=== PATIENT | male | born 1955 | race Caucasian/White ===

== ENCOUNTER 2019-12-26 07:28 | Outpatient (CLI) | payer BC, SELFPAY ==
--- NOTE | ~2019-12-26 | MR_ITS ---
EXAMINATION: MR lumbar spine wo con EXAM DATE: 12/26/2019 08:23 INDICATION: Low back pain, bilateral leg pain. TECHNIQUE: Multi-sequential, multiplanar MR images of the lumbar spine were obtained without contrast . Sagittal T1, T2, T2 fat saturation images. Axial T2 weighted images. There is no prior study for comparison. FINDINGS: There is chronic bilateral L5 spondylolysis with grade 2 anterolisthesis L5 on S1, moderate to severe disc disease. Moderate disc disease at L4-5 and mild at the other lumbar levels. Mild to m oderate disc disease T11-12 and T12-L1. The conus medullaris terminates at the L1/2 level and has nor mal signal intensity and morphology. There are no suspicious marrow signal abnormalities. Paraspinal soft tissue is unremarkable. Level by level evaluation: T12-L1: There is a mild to moderate diffuse disc bulge. Facet arthropathy: Mild. Neural foraminal stenosis: Mild bilateral. Central canal stenosis: Mild. L1-L2: There is a mild diffuse disc bulge. Facet arthropathy: Mild. Neural foraminal stenosis: No stenosis. Central canal stenosis: No stenosis. L2-L3: There is a moderate diffuse disc bulge. Facet arthropathy: Moderate. Neural foraminal stenosis: Mild right. Central canal stenosis: Mild to moderate. L3-L4: There is a large diffuse disc bulge. Facet arthropathy: Moderate. Neural foraminal stenosis: Mild to moderate bilateral. Central canal stenosis: Moderate, nerve root crowding. L4-L5: There is a large diffuse disc bulge. Facet arthropathy: Moderate to severe. Neural foraminal stenosis: Moderate bilateral, left more than right. Central canal stenosis: Moderate, less crowding than level above. L5-S1: There is a moderate diffuse disc bulge. Facet arthropathy: Moderate bilateral. Neural foraminal stenosis: Moderate to severe. Central canal stenosis: Mild. IMPRESSION: 1. Chronic L5 spondylolysis, grade 2 anterolisthesis L5 on S1 with moderate to severe bilateral neur al foraminal stenosis. 2. Lesser spondylosis above. Reviewed, dictated and finalized at location A. OF CUSTOMER EXPERIENCE STRATEGY IMPRESSION: 1. Chronic L5 spondylolysis, grade 2 anterolisthesis L5 on S1 with moderate to severe bilateral neural foraminal stenosis. 2. Lesser spondylosis above.
== END 2019-12-26 07:29 | disposition home or self-care (01) ==
PROVIDERS: PCP Internal Medicine; Visit Provider Internal Medicine
DX: M47.896 Other spondylosis, lumbar region (principal)
CPT/HCPCS: 72148

== ENCOUNTER 2022-09-21 02:03 | Day surgery (SDC) | payer MEDICARE, SELFPAY ==
[2022-09-11 11:11] VITALS: BMI 30.7
[2022-09-21 08:35] VITALS: BP 154/94; PULSE 100; RESP 18; TEMP 36.4; O2SAT 99
[2022-09-21] MEDS: LACTATED RINGERS 1,000 ML 150 ML IV CONT (08:55)
--- NOTE | 2022-09-21 09:06 | PM.HPGS ---
History of Present Illness History of Present Illness Consent: Risks, benefits, and alternatives have been discussed and questions answered. Patient agrees to proceed with procedure. Chief complaint: history of colon polyps Narrative: Glen Davey is a 66 year old male Presents for screening colonoscopy. Patient has a family history that includes 2 brothers and his father having had colon cancer. Patient's current weight appetite and bowel movements are normal. He did have a previous benign hyperplastic colon polyp in 2019. No prior history of adenomatous colon polyps are available. Patient has had screening colonoscopies at 3 year intervals. He denies any other family history of cancers. There are no gynecological cancers within the family. One brother had genetic testing that revealed no evidence for Beltran syndrome. Review of Systems Review of Systems: Review of systems noncontributory. [facility] Past Medical History Medical History (Updated 09/21/22 @ 09:08 by Tato Santiago MD) Elevated PSA measurement Family hx of colon cancer History of melanoma History of Mohs micrographic surgery for skin cancer Surgical History Surgical History (Updated 10/30/19 @ 09:11 by Josselin Alfred APRN) H/O repair of right rotator cuff History of left knee replacement History of left shoulder replacement History of right knee joint replacement Hx of colonoscopy Family History Family History (Updated 10/30/19 @ 09:35 by Josselin Alfred APRN) Father Carcinoma of colon Sibling Carcinoma of colon Sibling Carcinoma of colon Social History Social History (Updated 10/30/19 @ 09:36 by Josselin Alfred APRN) Smoking packs per day: 0.5 Smoking cigarettes per day: 10.0 Years smoked: 2 Smoking pack-years: 1.00 Smoking status: Former smoker Tobacco type: cigarettes Alcohol intake: current Alcohol use details: social Substance use: never Substance use type: does not use Living arrangements: with family Gender identity (if verbalized by the patient): Male Spiritual care concerns: No Meds Home Medications and Allergies Home Medications Medication Instructions Recorded Confirmed Type Cbd Oil PO DAILY 10/28/19 History aspirin 325 mg tablet 325 mg PO DAILY 10/28/19 09/21/22 History coQ10 (ubiquinol) 200 mg capsule 400 mg PO DAILY 10/28/19 09/21/22 History egzqginz-jse-oswci acid 300 1 tablet PO DAILY 10/28/19 09/21/22 History mcg-lycopene 600 mcg-lutein 300 mcg tablet (Centrum Silver Men) tamsulosin 0.4 mg capsule 0.4 mg PO DAILY 10/28/19 09/21/22 History turmeric 400 mg capsule 400 mg PO DAILY 10/28/19 09/21/22 History sodium,potassium,mag sulfates 17.5 See Rx Instructions PO .COMPLEX 08/15/22 09/21/22 Rx gram-3.13 gram-1.6 gram oral soln #354 mL (Suprep Bowel Prep Kit) Allergies Allergy/AdvReac Type Severity Reaction Status Date / Time No Known Allergies Allergy Verified 09/21/22 08:34 Vital Signs Vital Signs - 24 hr 09/21/22 08:35 Temperature 97.6 F Pulse Rate 100 Respiratory Rate 18 Blood Pressure 154/94 H Pulse Oximetry 99 Oxygen Delivery Room Air Exam Narrative: Physical exam reveals patient to be alert. Vital signs stable. HEENT exam is unremarkable. Patient is anicteric. Lungs are clear to auscultation and percussion. Heart is without murmur or extra sounds. Abdomen bowel sounds present soft nontender with no organomegaly. Digital external rectal exam is normal. Assessment and Plan Assessment and plan (1) Family hx of colon cancer: Code(s): Z80.0 - Family history of malignant neoplasm of digestive organs Status: Acute Assessment and Plan: Patient has had 2 brothers and a father with colon cancer. On previous colonoscopies patient had a hyperplastic polyp but never had adenomatous colon polyps. Plan for colonoscopy now and consider this at 3 year intervals in the future.
--- NOTE | 2022-09-21 09:43 | WPDANESEPPF ---
Anes - Initial Pre Proc Eval Procedure: Operation Date: 09/21/22 09:45 Proposed Procedures p Screening Colonoscopy - Tato Santiago MD Date/Time: 09/21/22 09:43 Surgeon: Tato Santiago MD Pre Op Diagnosis: history of colon polyps Patient Data Age: 66 Gender: M Height: 1.8 m Weight: 100.7 kg Last Vital Signs Temp 97.6 F 09/21/22 08:35 Pulse 100 09/21/22 08:35 Resp 18 09/21/22 08:35 BP 154/94 H 09/21/22 08:35 Pulse Ox 99 09/21/22 08:35 O2 Del Method Room Air 09/21/22 08:35 Allergies Allergy/AdvReac Type Severity Reaction Status Date / Time No Known Allergies Allergy Verified 09/21/22 08:34 Home Medications Medication Instructions Recorded Confirmed Type Cbd Oil PO DAILY 10/28/19 History aspirin 325 mg tablet 325 mg PO DAILY 10/28/19 09/21/22 History coQ10 (ubiquinol) 200 mg capsule 400 mg PO DAILY 10/28/19 09/21/22 History vbguppmq-wsy-iliwa acid 300 1 tablet PO DAILY 10/28/19 09/21/22 History mcg-lycopene 600 mcg-lutein 300 mcg tablet (Centrum Silver Men) tamsulosin 0.4 mg capsule 0.4 mg PO DAILY 10/28/19 09/21/22 History turmeric 400 mg capsule 400 mg PO DAILY 10/28/19 09/21/22 History sodium,potassium,mag sulfates 17.5 See Rx Instructions PO .COMPLEX 08/15/22 09/21/22 Rx gram-3.13 gram-1.6 gram oral soln #354 mL (Suprep Bowel Prep Kit) Patient hx anesthesia problems: none Family hx anesthesia problems: none Results Review: All pre-operative results and documents have been reviewed as part of the pre-operative evaluation. [facility] Past Medical History Medical History (Updated 09/21/22 @ 09:08 by Tato Santiago MD) Elevated PSA measurement Family hx of colon cancer History of melanoma History of Mohs micrographic surgery for skin cancer Surgical History Surgical History (Updated 10/30/19 @ 09:11 by Josselin Alfred, LUISA) H/O repair of right rotator cuff History of left knee replacement History of left shoulder replacement History of right knee joint replacement Hx of colonoscopy Family History Family History (Updated 10/30/19 @ 09:35 by Josselin Alfred APRN) Father Carcinoma of colon Sibling Carcinoma of colon Sibling Carcinoma of colon Social History Social History (Updated 10/30/19 @ 09:36 by Josselin Alfred APRN) Smoking packs per day: 0.5 Smoking cigarettes per day: 10.0 Years smoked: 2 Smoking pack-years: 1.00 Smoking status: Former smoker Tobacco type: cigarettes Alcohol intake: current Alcohol use details: social Substance use: never Substance use type: does not use Living arrangements: with family Gender identity (if verbalized by the patient): Male Spiritual care concerns: No Anes - Eval Final PreProcedure Day of Procedure 09/21/22 09:43 Patient weight: obese Heart: regular rate and rhythm Lungs: clear to auscultation Airway: Mallampati scale class II Neurological: alert and oriented Last oral intake: >/= 8 hours ASA classification: II Emergent: no Anesthetic plan: proceed Anesthesia type and monitoring: general GIVS and standard monitoring Results Review: All pre-operative results and documents have been reviewed as part of the pre-operative evaluation. Informed Consent: The patient's anesthetic plan and its attendant risks and benefits were discussed with the patient/family/POA. Questions were solicited and answers provided to the satisfaction of the patient/family/POA.
[2022-09-21 10:17] VITALS: BP 106/70; PULSE 80; RESP 18; O2SAT 94
[2022-09-21 10:27] VITALS: BP 122/82; PULSE 78; RESP 20; O2SAT 95
[2022-09-21 10:37] VITALS: BP 133/93; PULSE 76; RESP 20; O2SAT 96
== END 2022-09-21 10:49 | disposition home or self-care (01) ==
PROVIDERS: PCP Internal Medicine; Visit Provider Internal Medicine Gastroenterology
PROC: 0DJD8ZZ Inspection of Lower Intestinal Tract, Via Natural or Artificial Opening Endoscopic (ICD-10-PCS; CPT 45378; principal; 2022-09-21 09:45)
DX: Z12.11 Encounter for screening for malignant neoplasm of colon (principal); D12.3 Benign neoplasm of transverse colon; K64.8 Other hemorrhoids; K57.30 Diverticulosis of large intestine without perforation or abscess without bleeding; Z80.0 Family history of malignant neoplasm of digestive organs; Z87.891 Personal history of nicotine dependence; E66.9 Obesity, unspecified; Z68.31 Body mass index [BMI] 31.0-31.9, adult
CPT/HCPCS: 45385; 88305; J2704; J7120

== ENCOUNTER 2023-11-13 08:21 | Outpatient (CLI) | payer MEDICARE, SELFPAY ==
--- NOTE | ~2023-11-13 | DEXA_ITS ---
Bone Density Report Name: MAGGIE NGUYEN Age: 68 Sex: Male Ethnicity: White Date of : 1955 Indication: prior fracture; Referring Provider: Violet Stoddard Study: Bone densitometry was performed. Exam Date: November 13, 2023 Accession number: [id number] Bone Density: Region BMD T-score Z-score Classification AP Spine(L2, L3) 1.292 1.8 2.6 Normal Femoral Neck (Left) 0.936 0.0 1.1 Normal Total Hip (Left) 1.103 0.5 1.0 Normal Femoral Neck (Right) 0.905 -0.2 0.9 Normal Total Hip (Right) 1.090 0.4 0.9 Normal Femoral Neck Mean 0.920 -0.1 1.0 Normal Total Hip Mean 1.097 0.4 1.0 Normal World Health Organization criteria for BMD impression classify patients as: Normal (T-score at or above -1.0), Osteopenia (T-score between -1.0 and -2.5), or Osteoporosis (T-score at or below -2.5). 10-year Fracture Risk: FRAX not reported because: All T-scores for Spine Total, Hip Total, Femoral Neck at or above -1.0 Prior hip or vertebral fracture Clinical Information Provided by Patient: Have had a previous hip or vertebral fracture Has had a low trauma fracture Has used the following medications: Vitamin D, multi Patient maximum height was 70.5 Drinks caffeinated beverages Impression: The patient has normal bone mass. The patient has risk factors, including: previous fracture. Discussion: INCREASED RISK OF FRACTURE DUE TO HISTORY OF LOW TRAUMA FRACTURE. The patient's previous fracture puts the patient at high risk of a future fracture. In untreated patients, the risk of osteoporotic fracture increases approximately two-fold for each 1.0 SD decrease in T-score. Low bone density is not the only risk factor for fracture; also consider factors such as patient's age, frailty or poor health, risk of falling, risk of injury, previous osteoporotic fracture, family history of osteoporosis, cigarette smoking, low body weight, etc. Not everyone with a low trauma fracture has osteoporosis; osteomalacia and other metabolic bone disorders should also be considered. Patients who have osteoporosis should be evaluated for specific diseases and conditions (secondary causes) that may cause or contribute to bone loss and fracture risk. National Osteoporosis Foundation (NOF) recommends pharmacologic intervention for patients with a prior low trauma hip or vertebral fracture regardless of BMD T-score. The patient should follow a healthful lifestyle (good nutrition with adequate calcium and vitamin D, and appropriate weight-bearing exercise). Follow-Up: Consider a repeat BMD and Vertebral Fracture Assessment (VFA) exam in 2 years or sooner if medically necessary, to reassess this patient's status. Reported by: Dr. Adolfo Diaz on 11/13/2023 8:48:00 AM. Reviewed, dictated and finalized at location A.
== END 2023-11-13 08:22 | disposition home or self-care (01) ==
LOC: CHSIMG 08:23
PROVIDERS: PCP Internal Medicine; Visit Provider Internal Medicine
DX: M81.0 Age-related osteoporosis without current pathological fracture (principal)
CPT/HCPCS: 77080; 77081

== ENCOUNTER 2024-06-09 08:14 | Outpatient (CLI) | payer MEDICARE, SELFPAY ==
--- NOTE | ~2024-06-09 | US_ITS ---
EXAMINATION: US right upper quadrant DATE: 06/09/2024 08:39 INDICATION: Elevated liver enzymes TECHNIQUE: Multiple grayscale and Doppler ultrasound images of the right upper quadrant were obtained . COMPARISON: None available. FINDINGS: The pancreas is mostly obscured by bowel gas. Increased liver echogenicity. No surface nodu larity. Normal hepatopetal flow in the main portal vein. The gallbladder is normal with no abnormal w all thickening, pericholecystic fluid or stones. The common bile duct measures 4 mm. There was no son ographic Flores sign although this may be confounded by the concurrent use of pain medication. Incide ntal note of a simple right lower pole renal cyst. IMPRESSION: Pancreas poorly visualized. Echogenic liver, most commonly due to steatosis but also can be seen with hepatitis and fibrosis. Otherwise normal right upper quadrant ultrasound findings. Reviewed, dictated and finalized at location K. IMPRESSION: Pancreas poorly visualized. Echogenic liver, most commonly due to steatosis but also can be seen with hepatitis and fibrosis. Otherwise normal right upper jose alberto drant ultrasound findings.
== END 2024-06-09 08:15 ==
LOC: MICIMG 08:16
PROVIDERS: PCP Internal Medicine; Visit Provider Internal Medicine
DX: R94.5 Abnormal results of liver function studies (principal)
CPT/HCPCS: 76705